=== PATIENT | male | born 1960 | race Caucasian/White ===

== ENCOUNTER 2019-03-10 17:51 | Emergency (ER) | payer OTHER ==
[~2019-03-10] VITALS: Ht 170.2 cm; Wt 75.0 kg
[2019-03-10 18:17] VITALS: Ht 170.2 cm; Wt 75.0 kg
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
[2019-03-11 04:35] VITALS: BP 110/71; PULSE 88; RESP 20
== END 2019-03-11 04:42 | disposition home or self-care (01) ==
LOC: E/R 17:51
DX: S40.011A Contusion of right shoulder, initial encounter (principal); S70.11XA Contusion of right thigh, initial encounter; S70.01XA Contusion of right hip, initial encounter; F10.920 Alcohol use, unspecified with intoxication, uncomplicated; V03.10XA Pedestrian on foot injured in collision with car, pick-up truck or van in traffic accident, initial encounter
CPT/HCPCS: 70450; 73030; 73510; Z7502

== ENCOUNTER 2019-03-11 09:44 | Emergency (ER) | payer OTHER ==
[~2019-03-11] VITALS: Ht 170.2 cm; Wt 75.0 kg
[2019-03-11 09:46] VITALS: Ht 170.2 cm; Wt 75.0 kg
--- NOTE | 2019-03-11 11:44 | ERD ---
ER Documentation Chief Complaint Chief Complaint bib ra for eval of etoh. no apparent injuries noted. HPI Patient is a 58-year-old male with alcohol abuse and neuropathy who presents after a fall. The patient was brought in by ambulance. The patient admits to alcohol and says that he has been drinking for "1 month straight". He said that he tripped and fell off a curb today because he was not using his cane which he usually uses. He was seen yesterday for the same. Upon review of old medical records this is the patient's second visit to the ER. However upon review of the emergency department information exchange system the patient has visits to 10 separate emergency departments for a total of 38 visits over the past 1 year. ROS All systems reviewed and are negative except as per history of present illness. Allergies Allergies: Coded Allergies: Unknown: Unable to obtain (Unverified , 03/10/19) PMhx/Soc Hx Alcohol Use: Yes FmHx Family History: No diabetes Physical Exam Vitals Vital Signs Date Temp Pulse Resp B/P (MAP) Pulse Ox O2 O2 Flow FiO2 Time Delivery Rate 03/11/19 98.0 108 19 120/58 99 09:46 (78) Physical Exam Const: No acute distress Head: Atraumatic Eyes: Normal Conjunctiva ENT: Normal External Ears, Nose and Mouth. Neck: Full range of motion. No meningismus. Resp: Clear to auscultation bilaterally Cardio: Regular rate and rhythm, no murmurs Abd: Soft, non tender, non distended. Normal bowel sounds Skin: No petechiae or rashes Back: No midline or flank tenderness Ext: No cyanosis, or edema Neur: Awake but intoxicated Results 24 hrs Laboratory Tests Test 03/11/19 09:51 Bedside Glucose 94 mg/dL [facility] Patient refused CT scan of the brain. Accu-Chek was normal. Smoking Cessation Therapy: Pt. was lectured for greater than 3 minutes on the health risks of continued smoking and the benefits of cessation. Patient is a 58-year-old male with alcohol abuse who presents for alcohol intoxication. Accu-Chek was normal and I doubt hypoglycemia. The patient refused CT scan of the brain. He is awake and answering questions appropriately at this time. The patient was instructed not to drink alcohol to excess. He will need to follow-up with the local clinics within 1 week. The patient can return for any worsening symptoms. I doubt serious traumatic injury. Departure Diagnosis: Primary Impression: Fall Encounter type: initial encounter Qualified Codes: W19.XXXA - Unspecified fall, initial encounter Additional Impression: Alcoholic intoxication Complication of substance-induced condition: uncomplicated Qualified Codes: F10.920 - Alcohol use, unspecified with intoxication, uncomplicated Patient Instructions: Alcohol Intoxication, Fall, Uncertain Cause Referrals: [facility] YOU HAVE RECEIVED A MEDICAL SCREENING EXAM AND THE RESULTS INDICATE THAT YOU DO NOT HAVE A CONDITION THAT REQUIRES URGENT TREATMENT IN THE EMERGENCY DEPARTMENT. FURTHER EVALUATION AND TREATMENT OF YOUR CONDITION CAN WAIT UNTIL YOU ARE SEEN IN YOUR DOCTORS OFFICE WITHIN THE NEXT 1-2 DAYS. IT IS YOUR RESPONSIBILITY TO MAKE AN APPOINTMENT FOR FOLOW-UP CARE. IF YOU HAVE A PRIMARY DOCTOR --you should call your primary doctor and schedule an appointment IF YOU DO NOT HAVE A PRIMARY DOCTOR YOU CAN CALL OUR PHYSICIAN REFERRAL HOTLINE AT IF YOU CAN NOT AFFORD TO SEE A PHYSICIAN YOU CAN CHOSE FROM THE FOLLOWING [facility] [address] [facility] [address] [facility] [facility] [address] [facility] [address] [facility] [address] [facility]. [facility]. [address] Additional Instructions: Call your primary care doctor TOMORROW for an appointment during the next 1 WEEK.Tell the escrow secretary that you were referred from this facility.See the doctor sooner or return here if your condition worsens before your appointment time. EDWARD MEDELLIN MD Mar 11, 2019 11:44
[2019-03-11 19:00] VITALS: BP 130/75; PULSE 80; RESP 18
== END 2019-03-11 16:20 | disposition home or self-care (01) ==
LOC: E/R 09:44
DX: F10.920 Alcohol use, unspecified with intoxication, uncomplicated (principal)
CPT/HCPCS: 82962; Z7502; 99282

== ENCOUNTER 2019-03-12 09:09 | Emergency (ER) | payer OTHER ==
[~2019-03-12] VITALS: Ht 177.8 cm; Wt 90.9 kg
[2019-03-12 09:13] VITALS: Ht 177.8 cm; Wt 90.9 kg
[2019-03-12] MEDS ORDERED: KETOROLAC 30 MG INJ IM STA (09:22)
--- NOTE | 2019-03-12 11:09 | ERD ---
ER Documentation Chief Complaint Chief Complaint ETOH INTOXICATION HPI Patient is a 58-year-old male with alcohol abuse who presents for alcohol intoxication. The patient was brought in by ambulance. A bystander called 911. The patient complains of back pain. He was seen by myself yesterday for a very similar complaint. He has had no treatment as of yet. ROS All systems reviewed and are negative except as per history of present illness. Allergies Allergies: Coded Allergies: Unknown: Unable to obtain (Unverified , 03/10/19) PMhx/Soc Medical and Surgical Hx: pt denies Medical Hx Hx Miscellaneous Medical Probl: Yes (neuropathy, myelitis) Hx Alcohol Use: Yes (today) Hx Substance Use: Yes (heroine) Smoking Status: Never smoker FmHx Family History: No diabetes Physical Exam Vitals Vital Signs Date Temp Pulse Resp B/P (MAP) Pulse Ox O2 O2 Flow FiO2 Time Delivery Rate 03/12/19 97.9 108 18 128/67 98 09:13 (87) Physical Exam Const: Intoxicated Head: Atraumatic Eyes: Normal Conjunctiva ENT: Normal External Ears, Nose and Mouth. Neck: Full range of motion. No meningismus. Resp: Clear to auscultation bilaterally Cardio: Regular rate and rhythm, no murmurs Abd: Soft, non tender, non distended. Normal bowel sounds Skin: No petechiae or rashes Back: No midline or flank tenderness Ext: No cyanosis, or edema Neur: Awake but intoxicated Results 24 hrs Current Medications Medications Dose Sig/Luly Start Time Status Last (Trade) Ordered Route PRN Stop Time Admin Dose Reason Admin Ketorolac 30 mg ONCE STAT 03/12/19 DC 03/12/19 Tromethamine IM 09:22 10:06 (Toradol) 03/12/19 09:23 Procedures/MDM Patient is a 58-year-old male presents with acute alcohol intoxication. He is answering questions appropriately. He complains of back pain but I doubt epidural abscess, epidural hematoma, or cauda equina syndrome. He will be seen by bilingual social worker. I recommended outpatient alcohol detox. He can return for any worsening symptoms. Departure Diagnosis: Primary Impression: Alcohol intoxication Complication of substance-induced condition: uncomplicated Qualified Codes: F10.920 - Alcohol use, unspecified with intoxication, uncomplicated Condition: Fair Patient Instructions: Alcohol Intoxication Referrals: [facility] CL[facility] YOU HAVE RECEIVED A MEDICAL SCREENING EXAM AND THE RESULTS INDICATE THAT YOU DO NOT HAVE A CONDITION THAT REQUIRES URGENT TREATMENT IN THE EMERGENCY DEPARTMENT. FURTHER EVALUATION AND TREATMENT OF YOUR CONDITION CAN WAIT UNTIL YOU ARE SEEN IN YOUR DOCTORS OFFICE WITHIN THE NEXT 1-2 DAYS. IT IS YOUR RESPONSIBILITY TO MAKE AN APPOINTMENT FOR FOLOW-UP CARE. IF YOU HAVE A PRIMARY DOCTOR --you should call your primary doctor and schedule an appointment IF YOU DO NOT HAVE A PRIMARY DOCTOR YOU CAN CALL OUR PHYSICIAN REFERRAL HOTLINE AT IF YOU CAN NOT AFFORD TO SEE A PHYSICIAN YOU CAN CHOSE FROM THE FOLLOWING [facility] [address] [facility]. [facility] [address] [facility] [facility] [address] [facility] [facility] [address] [facility]. [facility] [address] [facility]. [facility]. [address] Additional Instructions: Call your primary care doctor TOMORROW for an appointment during the next 1 WEEK.Tell the nursing secretary that you were referred from this facility.See the doctor sooner or return here if your condition worsens before your appointment time. EDWARD MEDELLIN MD Mar 12, 2019 11:09
[2019-03-12 11:37] VITALS: BP 115/74; PULSE 96; RESP 18
== END 2019-03-12 12:37 | disposition home or self-care (01) ==
LOC: E/R 09:09
DX: F10.920 Alcohol use, unspecified with intoxication, uncomplicated (principal)
CPT/HCPCS: 96372; J1885; Z7502

== ENCOUNTER 2019-03-12 15:51 | Emergency (ER) | payer OTHER ==
[~2019-03-12] VITALS: Ht 177.8 cm; Wt 90.9 kg
[2019-03-12 15:56] VITALS: Ht 177.8 cm; Wt 90.9 kg
--- NOTE | 2019-03-12 16:37 | ERD ---
ER Documentation Chief Complaint Chief Complaint ETOH INTOXICATION HPI This is a 58-year-old alcoholic brought in by EMS for alcohol intoxication, this is his fourth presentation to this ER for the exact same thing in 2 days. He was just discharged from this ER a few hours prior and states he started drinking alcohol shortly after leaving our emergency department. Patient denies trauma, no vomiting, no chest pain or shortness of breath. Patient was transported here by EMS without further complications ROS All systems reviewed and are negative except as per history of present illness. Medications Home Meds Unable to Obtain Active Prescriptions or Reported Meds Allergies Allergies: Coded Allergies: Unknown: Unable to obtain (Unverified , 03/12/19) PMhx/Soc Alcoholism Medical and Surgical Hx: Unable to obtain Hx Miscellaneous Medical Probl: Yes (neuropathy, myelitis) Hx Alcohol Use: Yes (today) Hx Substance Use: Yes (heroine) Smoking Status: Unknown if ever smoked FmHx Family History: No diabetes Physical Exam Vitals Vital Signs Date Temp Pulse Resp B/P (MAP) Pulse Ox O2 O2 Flow FiO2 Time Delivery Rate 03/12/19 98.6 101 18 123/85 99 15:56 (98) Physical Exam GENERAL: Well-developed, well-nourished, well-hydrated, appears intoxicated, smells of alcohol, afebrile HEENT: Moist mucous membranes, pink conjunctiva, no cervical spine tenderness or step-off deformities, no goiter, no jaundice or icterus, extraocular movements intact without pain. No submandibular induration, and no pharyngeal erythema NEURO: Alert and oriented 3, patient is slurring his speech but has no focal deficits or facial asymmetry, pupils equal round reactive to light, no asterixis CARDIAC: Tachycardic and regular, LUNGS: Clear bilaterally no wheezing crackles or stridor ABDOMEN: Soft nontender, no guarding, no rigidity, no rebound, no psoas sign no obturator sign. SKIN: Warm and dry to touch, no abrasions, contusions, or hematomas, no lacerations. EXTREMITIES: No clubbing cyanosis or edema. Distal pulses equal and bilateral PSYCH: Normal affect without agitation or irritability, but intoxicated Procedures/MDM Patient placed on cardiac rehab nurse rhythm strip revealed a sinus tachycardia at 100 bpm. Patient was afebrile. We provided juice, water, sandwich to facilitate oral hydration. mosaic worker consult was requested, patient states he wants to go to a homeless nursing home. Patient feels much better at this time, and vital signs are normal, symptoms have improved. I did give strict instructions to return to the ED if symptoms continue or worsen, patient will otherwise follow-up with primary care physician. Patient understood instructions and agreed to plan. Disclaimer: Inadvertent spelling and grammatical errors are likely due to EHR/dictation software use and do not reflect on the overall quality of patient care. Also, please note that the electronic time recorded on this note does not necessarily reflect the actual time of the patient encounter. Departure Diagnosis: Primary Impression: Alcoholic intoxication Complication of substance-induced condition: uncomplicated Qualified Codes: F10.920 - Alcohol use, unspecified with intoxication, uncomplicated Additional Impression: Alcohol abuse Condition: Stable LENNOX GRANDE MD Mar 12, 2019 16:37
[2019-03-12 21:14] VITALS: BP 132/94; PULSE 85; RESP 18
== END 2019-03-12 21:14 | disposition home or self-care (01) ==
LOC: E/R 15:51
DX: F10.920 Alcohol use, unspecified with intoxication, uncomplicated (principal)
CPT/HCPCS: 99282

== ENCOUNTER 2019-03-13 01:12 | Emergency (ER) | payer OTHER ==
[~2019-03-13] VITALS: Ht 167.6 cm; Wt 90.9 kg
--- NOTE | 2019-03-13 01:15 | ERD ---
ER Documentation Chief Complaint Chief Complaint Alcohol HPI 58-year-old male well-known to us comes in for alcohol intoxication. Is been here 4 times today. Denies any trauma. Denies any other current complaints. ROS All systems reviewed and are negative except as per history of present illness. Medications Home Meds Unable to Obtain Active Prescriptions or Reported Meds Allergies Allergies: Coded Allergies: Unknown: Unable to obtain (Unverified , 03/12/19) PMhx/Soc Hx Miscellaneous Medical Probl: Yes (neuropathy, myelitis) Hx Alcohol Use: Yes (today) Hx Substance Use: Yes (heroine) Physical Exam Vitals Temp 98.6, pulse 118, respiratory rate 18, blood pressure 117/63 Physical Exam Const: No acute distress Head: Atraumatic Eyes: Normal Conjunctiva ENT: Normal External Ears, Nose and Mouth. Neck: Full range of motion. No meningismus. Resp: Clear to auscultation bilaterally Cardio: Regular rate and rhythm, no murmurs Abd: Soft, non tender, non distended. Normal bowel sounds Skin: No petechiae or rashes Back: No midline or flank tenderness Ext: No cyanosis, or edema Neur: Awake and alert Psych: Normal Mood and Affect Procedures/MDM Medical decision making: Patient was advised to stop drinking alcohol. He is stable for outpatient management pending sobriety. Social work and resources offered. Departure Diagnosis: Primary Impression: Alcohol intoxication Complication of substance-induced condition: uncomplicated Qualified Codes: F10.920 - Alcohol use, unspecified with intoxication, uncomplicated Condition: Stable Patient Instructions: Ethanol (Blood) ZAN CHAMPAGNE Mar 13, 2019 01:15
[2019-03-13 01:16] VITALS: Ht 167.6 cm; Wt 90.9 kg
[2019-03-13 08:16] VITALS: BP 144/79; PULSE 72; RESP 19
== END 2019-03-13 08:17 | disposition home or self-care (01) ==
LOC: E/R 01:12
DX: F10.920 Alcohol use, unspecified with intoxication, uncomplicated (principal)
CPT/HCPCS: 99282

== ENCOUNTER 2019-03-13 12:27 | Emergency (ER) | payer OTHER ==
[~2019-03-13] VITALS: Ht 167.6 cm; Wt 77.3 kg
[2019-03-13 12:30] VITALS: Ht 167.6 cm; Wt 77.3 kg
--- NOTE | 2019-03-13 13:09 | ERD ---
ER Documentation Chief Complaint Chief Complaint ETOH HPI This is a 58-year-old male who was just discharged approximately 2 hours ago. The patient has a long-standing history of homelessness, alcohol abuse and recurrent visits for alcohol-related issues. The patient arrives with a can of beer in his pants and smells strongly of alcohol. Patient states that he has been drinking. He has no complaints. 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 Patient states that he does not want anything done to him. He states that he would like to eat some food and have something to drink. He denies any falls or head injury no chest pain shortness of breath fevers or chills. ROS All systems reviewed and are negative except as per history of present illness. Medications Home Meds Unable to Obtain Active Prescriptions or Reported Meds Allergies Allergies: Coded Allergies: Unknown: Unable to obtain (Unverified , 03/13/19) PMhx/Soc History of Surgery: No Anesthesia Reaction: No Hx Neurological Disorder: No Hx Respiratory Disorders: No Hx Cardiac Disorders: No Hx Psychiatric Problems: Yes (ETOH abuse,heroine abuse) Hx Miscellaneous Medical Probl: Yes (neuropathy, myelitis) Hx Alcohol Use: Yes (today) Hx Substance Use: Yes (heroine) FmHx Family History: No diabetes Physical Exam Vitals Vital Signs Date Temp Pulse Resp B/P (MAP) Pulse Ox O2 O2 Flow FiO2 Time Delivery Rate 03/13/19 96 21 117/77 97 16:42 (90) 03/13/19 95 21 112/77 98 16:17 (89) 03/13/19 99.1 88 18 99/58 (72) 98 12:30 Physical Exam General: Smells of alcohol, no significant distress, conversive Head: Normocephalic, atraumatic. Eyes: Pupils equally reactive, EOM intact ENT: Moist mucous membranes Neck: Supple, no lymphadenopathy Respiratory: Lungs clear bilaterally, no distress Cardiovascular: RRR, no murmurs, rubs, or gallops Abdominal: Soft, non-tender, non-distended, no peritoneal signs : Deferred MSK: No edema, no unilateral swelling, 5/5 strength Neurologic: Slightly intoxicated, slightly unsteady gait Skin: No rash, no evidence of trauma Psych: Normal mood Results 24 hrs Current Medications Medications Dose Sig/Luly Start Time Status Last (Trade) Ordered Route PRN Stop Time Admin Dose Reason Admin Olanzapine 10 mg ONCE ONCE 03/13/19 DC 03/13/19 (Zyprexa) IM 16:00 16:33 03/13/19 16:01 Procedures/MDM EKG, MONITORS, & DIAGNOSTIC IMAGING: CT brain IMPRESSION: Atrophy. White matter disease compatible with chronic small vessel ischemia. 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 No intracranial hemorrhage, mass or evidence of acute transcortical infarct. No intracranial hemorrhage or skull fracture. PROCEDURES: None Required Restrains: Indication: Fall risk, etoh, uncooperative Location: 4 point restraints to bilateral upper and lower extremities The patient was given verbal warnings that if the behavior continued the patient would require physical and/or chemical restraints. Despite verbal warnings the behavior continued and restraints were applied. The patient had a bedside reevaluation within 50 minutes of placement of restraints. Patient remained stable. MEDICAL DECISION MAKING: The patient's presentation is consistent with acute alcohol intoxication I have a much lower clinical concern for clinically significant traumatic brain injury, meningitis, significant electrolyte disturbance. The patient's workup will include a medical screening examination as well as observation for sobriety. The patient's presentation is most consistent with acute alcohol intoxication leading to acute encephalopathy. The patient is protecting their airway. The patient has no signs or symptoms concerning for impending respiratory failure and does not require intubation at this time. The patient will require observation in the emergency room to allow for metabolization. Once the patient is able to ambulate on their own accord, navigate the community the patient can be safely discharged from the emergency room. The patient has been evaluated by psychosocial rehabilitation counselor multiple times. He is refusing social service director at this time. The patient is quite defiant. I have reason with the patient to stay in bed until he iliana up. While the patient is ambulatory he is slightly unsteady and I would like to observe more sobriety and steadiness prior to discharge. Patient does have a can of beer in his pocket. It is been taken from him and placed in a belongings bag next to the bed. The patient was informed that he cannot consume this in the emergency room ER COURSE: * Patient is sitting in bed. His blood pressure was borderline at triage but he is refusing any laboratory testing diagnostic imaging or IV fluids. Likely secondary to alcohol use and dehydration rather than serious etiology such as infection or bleeding. Patient is given food and drink. * During the patient's ER course the patient continued to be noncompliant. He would get up out of bed and then lay on the floor. This happened 2-3 times. There is no actual fall or significant head injury but the patient's belligerence and noncompliance warranted restraints and Zyprexa. A CT of the brain will be ordered because he is laying on the ground but again very low clinical concern for traumatic injury. * CT brain is negative. The patient is resting comfortably. Restraints discont inued. OBSERVATION: Observation Note: Indication: Alcohol Intoxication Duration: Greater than 4 hours Family history: As above The patient was observed with serial exams over the above timeframe. The patient continued to be well-appearing, and observation continued without complication. CONSULTATION: None DISPOSITION PLAN: Pending sobriety Departure Diagnosis: Primary Impression: Alcoholic intoxication Complication of substance-induced condition: uncomplicated Qualified Codes: F10.920 - Alcohol use, unspecified with intoxication, uncomplicated Condition: Stable ANNA BINGHAM MD Mar 13, 2019 13:09
[2019-03-13] MEDS ORDERED: OLANZAPINE 10 MG VIAL IM ONE (16:00)
[2019-03-14 05:18] VITALS: BP 132/80; PULSE 77; RESP 18
== END 2019-03-14 05:19 | disposition home or self-care (01) ==
LOC: E/R 12:27
DX: F10.920 Alcohol use, unspecified with intoxication, uncomplicated (principal); R40.2142 Coma scale, eyes open, spontaneous, at arrival to emergency department; R40.2362 Coma scale, best motor response, obeys commands, at arrival to emergency department; R40.2252 Coma scale, best verbal response, oriented, at arrival to emergency department; R94.02 Abnormal brain scan; Z59.0 Homelessness
CPT/HCPCS: 70450; 96372; Z7502; Z7610